=== PATIENT | female | born 1970 | race Two or more races ===

== ENCOUNTER 2025-08-16 12:50 | Outpatient (CLI) | payer OTHER, SELFPAY ==
--- OUTSIDE RECORDS SUMMARY | 2024-11-11 03:30 | XMS_ITS ---
Author Organization [facility] Address [address] [facility] [address] [place] [address] Care Team Providers Care Dye Boarding Machine Operator Name Role Phone Castillo Barrett Primary Care Provider Encounters Encounter Location Date Provider Diagnosis [facility] [address] [facility] [address] [place] [address] 11/11/2024 Castillo Barrett Plan Of Treatment Next Appt Details Provider Name:Castillo wells, 08/17/2025 01:00:00 PM, [address] [facility], [facility] [address], [place], [address], Progress Notes * EDDY, PATRICIA IDOB: 9 (55 yo F)Acc No.[id number]:11/11/2024 Progress Notes Patient: PATRICIA LANCASTER I Provider: Rosita Barrett M.D. :1970 A ge:54 Y S ex:Female Date:11/11/2024 Address[facility] [address] [facility] [id number] Subjective: * Chief Complaints: * * Medical History: Objective: * Vitals: Assessment: Plan: * Treatment: * * Electronic signature of Dominique Barrett MD on 08/16/2025 at 02:56 PM EST Sign off status: Pending * Provider: Rosita Barrett M.D. Date: 0 11/11/2024 Generated for Anibal grove/Dane/Miguel on: 1 10/16/2024 02:56 PM EST
--- OUTSIDE RECORDS SUMMARY | 2024-11-11 04:54 | XMS_ITS ---
Author Organization [facility] Address [address] [facility] [address] [place] [address] Care Team Providers Care Signal Inspector Name Role Phone Castillo Barrett Primary Care Provider Encounters Encounter Location Date Provider Diagnosis [facility] [address] [facility] [address] [place] [address] 11/11/2024 Castillo Barrett Plan Of Treatment Next Appt Details Provider Name:Castillo wells, 08/17/2025 01:00:00 PM, [address] [facility], [facility] [address], [place], [address], Progress Notes * EDDY, PATRICIA IDOB: [birth year] (55 yo F)Acc No.[id number]:11/11/2024 Progress Notes Patient: PATRICIA LANCASTER I Provider: Rosita Barrett M.D. :1970 A ge:54 Y S ex:Female Date:11/11/2024 Address[id number] Subjective: * Chief Complaints: * * Medical History: Objective: * Vitals: Assessment: Plan: * Treatment: * * Electronic signature of Dominique Barrett MD on 08/16/2025 at 02:57 PM EST Sign off status: Pending * Provider: Rosita Barrett M.D. Date: 0 11/11/2024 Generated for Anibal grove/Dane/Miguel on: 1 10/16/2024 02:57 PM EST
--- OUTSIDE RECORDS SUMMARY | 2024-11-17 03:30 | XMS_ITS ---
Author Organization [facility] Address [address] [facility] 2 [place] [address] Care Team Providers Care Servomechanism Assembler Name Role Phone Castillo Barrett Primary Care Provider [phone] Allergies No Known Allergies REASON FOR VISIT F/U HTN Medications Medication SIG (Take, Route, Frequency, Duration) Notes Start Date End Date Status Losartan Potassium 25 MG Take 1 tablet b y mouth once daily; Duration: 30 Active Phentermine HCl 37.5 MG 1 capsule Orally Once a day; Duration: 30 days 10/11/2024 Active Vitamin D (Ergocalciferol) 1.25 MG (27612 UT) Take 1 capsule by mouth once a week; Duration: 84 Active Aleve 220 MG 1 tablet with food o r milk as needed Orally every 12 hrs Active Multi For Her - 1 tab Orally Every day Not-Taking SENNA-S 8.6-50 MG 2TAB PO bid prn Not-Taking Doxycycline Hyclate 100 MG 1 capsule Ora lly Twice a day; Duration: 7 days 08/18/2018 Not-Taking Tessalon Perles 100 MG 1 capsule as need ed Orally Three times a day; Duration: 7 days 08/18/2018 Not-Taking Multivitamins 1TAB 1 tablet PO 1 per week 10/05/18 Not-Taking Social History Tobacco Use: Social History Observation Description Date Details (start date - stop date) Never Smoker NA - NA Tobacco Use/Smoking Question Answer Notes Are you a nonsmoker Additional Findings: Tobacco Non-User Current no n-smoker Tobacco use other than smoking: Question Answer Notes Are you an other tobacco user? No Vital Signs Temperature 98.2 degrees Fahrenheit 11/17/19 25 Blood pressure systolic 122 mm Hg 11/17/19 25 Blood pressure diastolic 84 mm Hg 025 Heart Rate 93 /min 11/17/2024 Respiratory Rate 16 /min 11/17/2024 Height 65 in 11/17/2024 Weight 204 lbs 11/17/2024 BMI 33.94 kg/m2 11/17/2024 Oximetry 98 % 11/17/2024 ple Encounters Encounter Location Date Provider Diagnosis [facility] [address] [facility] [address] [place] [address] 11/17/2024 Castillo Barrett Hypertension I10 ; H LD (hyperlipidemia) E78.5 ; Morbid obesity E66.01 and Bilateral primary osteoarthritis of knee M17.0 Assessments Encounter Date Diagnosis (ICD Code) Assessment Notes Treatment Notes Treatment Clinical Notes Section Notes 11/17/2024 Hypertension (ICD-10 - I10) High Blood Pressure: Care Instructions material was published 11/17/2024 HLD (hyperlipidemia) (ICD-10 - E78.5) 11/17/2024 Morbid obesity (ICD-10 - E66.01) 11/17/2024 Bilateral primary osteoarthritis of knee (ICD-10 - M17.0) Plan Of Treatment Treatment Notes Assessment Notes Hypertension High Blood Pressure: Care Instructions material was published Next Appt Details Provider Name:Castillo wells, 08/17/2025 01:00:00 PM, [address] [facility], [address], [place], [address], Progress Notes * PATRICIA EDDY IDOB: [birth year] (55 yo F)Acc No.[id number]:11/17/2024 Progress Notes Patient: CORRIE LANCASTERTI Chelsey Provider: Rosita Barrett M.D. :1970 A ge:54 Y S ex:Female Date:11/17/2024 Address:[address] [place] [address] [place] [address] Subjective: * Chief Complaints: * 1 . F/U HTN. * ROS: C onstitutional: No C onstit. Complaints . D enies A ppetites change . D enies E xcessive sweating . D enies F atigue . D enies F ever. D enies N ight sweats . D enies W eight gain. D enies W eight loss. E yes: No E ye complaints . D enies B lurred vision. D enies C orrective lenses. D enies D iplopia. D enies E ye irritation . D enies E ye pain . D enies S pots in vision . D enies V ision loss. ? E ars, nose, mouth, throat: No E NT complaints . D enies E ar pain . D enies H earing loss . D enies T innitus. D enies V ertigo. D enies F acial pain . D enies N miguel discharge. D enies N miguel obstruction . D enies N osebleeds. D enies P ostnasal drainage . D enies B leeding gums. D enies D ental pain . D enies M outh Lesions . D enies H oarseness. D enies S ore throat .? C ardiovascular: No C ardiovas. Complaints. D enies C hest pain .?Denies D ecr. exercise tolerance . D enies E xertional dyspnea . D enies O rthropnea. D enies P alpitations. D enies S yncope. D enies C laudication . Denies L eg ulcers . D enies P eripheral edema. R espiratory: No R espiratory Complaints . D enies C ough . D enies S putum production . D enies H emoptysis . D enies S hortness of Breath .?Denies P leuritic pain . D enies W heezing . D enies S noring . D enies A pneas. G astrointestinal: No G I Complaints . D enies A bdominal pain . D enies B loating . D enies F ood intolerance . D enies N ausea. D enies V omiting . D enies D ysphagia . D enies R eflux/heartburn . D enies C hange in bowel habits . D enies C onstipation . D enies D iarrhea . D enies B lack stools . D enies B loody stools. G enitourinary: No G U Complaints . D enies C hange in urinary stream . D enies D ysuria . D enies H ematuria . D enies I ncontinence . D enies N octuria . D enies U rinary frequency . D enies U rinary urgency . D enies D ysmenorrhea. D enies D yspareunia. D enies S exual dysfunction . D enies V aginal discharge . M usculoskeletal: Denies M usculo. Complaints . D enies B ack pain .?Admits J oint pain , K nee pain, Neck pain. . A dmits J oint swelling ,?Leg swelling. D enies L imited range of motion . D enies M uscle aches. D enies M uscle weakness . D enies S tiffness . N eurologic: No N eurologic Complaints . D enies A bnormal gait . D enies F ocal weakness . D enies H eadache . D enies I ncoordination .?Denies M eugenie problems . D enies N umbness . D enies S eizures . D enies?Slurred Speech. P sychiatric: No P sychiatric Complaints . D enies A nxiety .?Denies D ecreased concentration . D enies I rritability . D enies P anic attacks . D enies S leep disturbance . D enies S adness/tearfulness. H ematologic/lymphatic: No H em/Lymph Complaints . D enies B ruising . D enies B leeding tendencies . D enies L ymphadenopathy . D enies R ecurrent infections . A llergic/immunologic: No A ll/Imm Complaints . D enies E czema. D enies S easonal allergies . D enies U rticaria . E ndocrine: No E ndocrine Complaints . D enies P olydipsia .?Denies P olyphagia . D enies P olyuria . * Medical History: A nemia, Constipation, ,Note-righjt ovary, Varicose veins of lower extremity. * Surgical History: C -Section Childbirth ; , Hysterectomy [id number] ; , lasik ; . * Family History: F ather: diagnosed with Diabetes mellitus without mention of complication, type II or unspecified type, not stated as uncontrolled, Unspecified essential hypertension, Unspecified heart disease. Paternal uncle: diagnosed with Diabetes mellitus without mention of complication, type II or unspecified type, not stated as uncontrolled. 2 brother(s) . 1 son(s) - healthy. . * Social History: T obacco Use: T obacco Use/Smoking A re you a n onsmoker, A dditional Findings: Tobacco Non-User C urrent non-smoker. T obacco use other than smoking A re you an other tobacco user? N o. M igSocialHx: M igSocialHx: Alcohol Use (ANS-No) ;Drug Use (ANS-No) ;Exposed to Second Hand Smoke (ANS-No) ;History of IV Drug Use (ANS-No) ;Lives In (ANS-Home) ;Lives With (ANS-Spouse) ;Smoking status (ANS-Never smoker) ;. D rugs/Alcohol: D rugs H ave you used drugs other than those for medical reasons in the past 12 months??No. C affeine I ntake: 1 -2 cups per day. D o you smoke marijuana?: Denies. Do you drink alcohol?: No. * Medications: T aking Aleve 220 MG Tablet 1 tablet with food or milk as needed Orally every 12 hrs , Taking Vitamin D (Ergocalciferol) 1.25 MG (83944 UT) Capsule Take 1 capsule by mouth once a week , Taking Phentermine HCl 37.5 MG Capsule 1 capsule Orally Once a day , Taking Losartan Potassium 25 MG Tablet Take 1 tablet by mouth once daily , Not-Taking/PRN Multi For Her - Tablet 1 tab Orally Every day , Not-Taking/PRN Multivitamins 1TAB TAB 1 tablet PO 1 per week , Not-Taking/PRN Tessalon Perles 100 MG Capsule 1 capsule as needed Orally Three times a day , Not-Taking/PRN Doxycycline Hyclate 100 MG Capsule 1 capsule Orally Twice a day , Not-Taking/PRN SENNA-S 8.6-50 MG 2TAB TAB PO bid prn , Medication List reviewed and reconciled with the patient * Allergies: N .K.D.A. Objective: * Vitals: T emp:98.2F, HR:93/min, BP:122/84mm Hg, Wt:204lbs, BMI:33.94Index, Ht: 65 in, RR:16/min, Oxygen sat %:98%, Peak Flow: RA, Wt-k.53 kg. ple. * Examination: G eneral Examination: FUNCTIONAL STATUS A mbulatory . COGNITIVE STATUS A lert and oriented. GENERAL APPEARANCE: i n no acute distress, well developed, well nourished. NUTRITIONAL STATUS N ormal . ASSISTED DEVICES N one. HEAD: n ormocephalic, atraumatic. EYES: p upils equal, reactive to light and accommodation.? EARS: n ormal. ORAL CAVITY: m ucosa moist. THROAT: c lear. NECK/THYROID: n vladimir supple, full range of motion, no cervical lymphadenopathy. SKIN: w arm and dry. HEART: r egular rate and rhythm, S1, S2 normal. LUNGS: c lear to auscultation bilaterally. ABDOMEN: n ormal, bowel sounds present, soft, nontender, nondistended. EXTREMITIES: n o clubbing, cyanosis, or edema. NEUROLOGIC: n onfocal, cranial nerves 2-12 grossly intact, motor strength normal upper and lower extremities, sensory exam intact. PSYCH: a lert, oriented x 3. Assessment: * Assessment: 1. H ypertension - I10 (Primary) 2 . H LD (hyperlipidemia) - E78.5 ? 3 . M orbid obesity - E66.01 4 . B ilateral primary osteoarthritis of knee - M17.0 Plan: * Treatment: * Preventive Medicine: Counseling: C are goal follow-up plan: B MA management provided Y es, Sara muller Normal BMI Follow-up G iving encouragement to exercise, Lifestyle education regarding diet. * * Electronic signature of Dominique Barrett MD on 08/16/2025 at 02:56 PM EST Sign off status: Pending * Provider: Rosita Barrett M.D. Date: 0 11/17/2024 Generated for [place]ibal [place]ve/Dane/eTransmitting on: 1 10/16/2024 02:56 PM EST History and Physical Notes * Examination Category Sub-Category Detail Notes Category Not es General Examination GENERAL APPEARANCE: in no ac [place] distress, well developed, well nourished HEAD: normocephalic, atrau matic EYES: pupils equal, reacti ve to light and accommodation EARS: normal THROAT: clear NECK/THYROID: neck supple, full ra nge of motion, no cervical lymphadenopathy HEART: regular rate and rhy thm, S1, S2 normal LUNGS: clear to auscultatio n bilaterally ABDOMEN: normal, bowel sounds present, soft, nontender, nondistended NEUROLOGIC: nonfocal, cranial ne rves 2-12 grossly intact, motor strength normal upper and lower extremities, sensory exam intact SKIN: warm and dry EXTREMITIES: no clubbing, cyanosi s, or edema PSYCH: alert, oriented x 3 ORAL CAVITY: mucosa moist FUNCTIONAL STATUS Ambulatory COGNITIVE STATUS Alert and oriented NUTRITIONAL STATUS Normal ASSISTED DEVICES None
--- OUTSIDE RECORDS SUMMARY | 2024-12-15 09:00 | XMS_ITS ---
Author Organization [facility] Address [address] [facility] [address] [place] [address] Care Team Providers Care Edge Dyer Name Role Phone Castillo Barrett Primary Care Provider Allergies No Known Allergies REASON FOR VISIT F/U HTN Medications Medication SIG (Take, Route, Frequency, Duration) Notes Start Date End Date Status Aleve 220 MG 1 tablet with food o r milk as needed Orally every 12 hrs Active Multivitamins 1TAB 1 tablet PO 1 per week 10/05/18 Not-Taking Tessalon Perles 100 MG 1 capsule as need ed Orally Three times a day; Duration: 7 days 08/18/2018 Not-Taking Doxycycline Hyclate 100 MG 1 capsule Ora lly Twice a day; Duration: 7 days 08/18/2018 Not-Taking SENNA-S 8.6-50 MG 2TAB PO bid prn Not-Taking Phentermine HCl 37.5 MG 1 capsule Orally Every other day; Duration: 30 days 11/17/2024 Active Vitamin D (Ergocalciferol) 1.25 MG (20844 UT) Take 1 capsule by mouth once a week; Duration: 84 Active Losartan Potassium 25 MG Take 1 tablet b y mouth once daily; Duration: 30 Active Multi For Her - 1 tab Orally Every day Not-Taking Social History Tobacco Use: Social History Observation Description Date Details (start date - stop date) Never Smoker NA - NA Tobacco Use/Smoking Question Answer Notes Are you a nonsmoker Additional Findings: Tobacco Non-User Current no n-smoker Tobacco use other than smoking: Question Answer Notes Are you an other tobacco user? No Vital Signs Temperature 97.6 degrees Fahrenheit 12/16/19 25 Blood pressure systolic 124 mm Hg 12/16/19 25 Blood pressure diastolic 86 mm Hg 025 Heart Rate 92 /min 12/15/2024 Respiratory Rate 16 /min 12/15/2024 Height 65 in 12/15/2024 Weight 200 lbs 12/15/2024 BMI 33.28 kg/m2 12/15/2024 Oximetry 99 % 12/15/2024 ple Encounters Encounter Location Date Provider Diagnosis [facility] [address] [facility] [address] [place] [address] 12/15/2024 Castillo Barrett Hypertension I10 ; HLD (hyperlipidemia) E78.5 ; Vitamin D deficiency E55.9 ; Non-seasonal allergic rhinitis, unspecified trigger J30.89 and Morbid obesity E66.01 Assessments Encounter Date Diagnosis (ICD Code) Assessment Notes Treatment Notes Treatment Clinical Notes Section Notes 12/15/2024 Hypertension (ICD-10 - I10) High Blood Pressure: Care Instructions material was published 12/15/2024 HLD (hyperlipidemia) (ICD-10 - E78.5) 12/15/2024 Vitamin D deficiency (ICD-10 - E55.9) 12/15/2024 Non-seasonal allergic rhinitis, unspecified trigger (ICD-10 - J30.89) 12/15/2024 Morbid obesity (ICD-10 - E66.01) Plan Of Treatment Treatment Notes Assessment Notes Hypertension High Blood Pressure: Care Instructions material was published Next Appt Details Provider Name:Castillo wells, 08/17/2025 01:00:00 PM, [address] [facility], [address], [place], [address], Progress Notes * PATRICIA EDDY IDOB: [birth year] (55 yo F)Acc No.[id number]:12/15/2024 Progress Notes Patient: PATRICIA LANCASTER I Provider: Rosita Barrett M.D. :1970 A ge:54 Y S ex:Female Date:12/15/2024 Address:[address] [address] , [place] [id number] Subjective: * Chief Complaints: * 1 . F/U HTN. * ROS: C onstitutional: No C onstit. Complaints . D enies A ppetites change . D enies E xcessive sweating . D enies F atigue . D enies F ever. D enies N ight sweats . D enies W eight gain. D enies W eight loss. E yes: No E ye complaints . A dmits B lurred vision. D enies C orrective [...] ack pain .?Admits J oint pain , N vladimir pain, Lt & Rt Knee pain,Shoulder pain. . A dmits J oint swelling , L eg swelling . D enies L imited range of motion . D enies M uscle aches. D enies M uscle weakness . D enies S tiffness . ? N eurologic: No N eurologic Complaints . [...] History: C -Section Childbirth ; , Hysterectomy ; , lasik ; . * Family [...] Use/Smoking A re you a n onsmoker, Sara dditional Findings: Tobacco Non-User C urrent non-smoker. [...] needed Orally every 12 hrs , Taking Phentermine HCl 37.5 MG Capsule 1 capsule Orally Every other day , Taking Vitamin D (Ergocalciferol) 1.25 MG (07771 UT) Capsule Take 1 capsule by mouth once a week , Taking Losartan Potassium 25 MG Tablet [...] 8.6-50 MG 2TAB TAB PO bid prn * Allergies: N .K.D.A. Objective: * Vitals: T emp:97.6F, HR:92/min, BP:124/86mm Hg, Wt:200lbs, BMI:33.28Index, Ht: 65 in, RR:16/min, Oxygen sat %:99%, Peak Flow: RA, Wt-k.72 kg. ple. * Examination: G eneral Examination: [...] LD (hyperlipidemia) - E78.5 ? 3 . V itamin D deficiency - E55.9 4 . N on-seasonal allergic rhinitis, unspecified trigger - J30.89 5 . M orbid obesity - E66.01 Plan: * Treatment: * Preventive Medicine: Counseling: C are goal follow-up plan: B AL management provided Sara Melissa Normal BMI Follow-up G iving encouragement to exercise, Lifestyle education regarding diet. * * Electronic signature of Dominique Barrett MD on 08/16/2025 at 02:57 PM EST Sign off status: Pending * Provider: Rosita Barrett M.D. Date: 0 12/15/2024 Generated for Printi ng/Faxing/eTransmitting on: 1 10/16/2024 02:57 PM EST History and Physical Notes * Examination Category Sub-Category Detail Notes Category Not es General Examination GENERAL APPEARANCE: in no ac stephanie distress, well developed, well nourished HEAD: normocephalic, [...]
--- OUTSIDE RECORDS SUMMARY | 2025-01-12 09:30 | XMS_ITS ---
Author Organization [facility] Address [address] [facility] [address] [place] [address] Care Team Providers Care Final Rail Cutter Name Role Phone Castillo Barrett Primary Care Provider [phone] Encounters Encounter Location Date Provider Diagnosis [facility] [address] [facility] [address] [place] [address] 01/12/2025 Castillo Barrett Plan Of Treatment Next Appt Details Provider Name:Castillo wells, 08/17/2025 01:00:00 PM, [address] [facility], [facility] [address], [place], [address], Progress Notes * EDDY, PATRICIA IDOB: [birth year] (55 yo F)Acc No.[id number]:01/12/2025 Progress Notes Patient: PATRICIA LANCASTER I Provider: Rosita Barrett M.D. :1970 A ge:54 Y S ex:Female Date:01/12/2025 [id number] Subjective: * Chief Complaints: * * Medical History: Objective: * Vitals: Assessment: Plan: * Treatment: * * Electronic signature of Dominique Barrett MD on 08/16/2025 at 02:56 PM EST Sign off status: Pending * Provider: Rosita Barrett M.D. Date: 0 01/12/2025 Generated for [place]ve/Dane/Miguel on: 1 10/16/2024 02:56 PM EST
--- OUTSIDE RECORDS SUMMARY | 2025-02-02 09:45 | XMS_ITS ---
Author Organization [facility] Address [address] [facility] [address] [place] [address] Care Team Providers Care Patents Examiner Name Role Phone Castillo Barrett Primary Care Provider Encounters Encounter Location Date Provider Diagnosis [facility] [address] [facility] [address] [place] [address] 02/02/2025 Castillo Barrett Plan Of Treatment Next Appt Details Provider Name:Castillo wells, 08/17/2025 01:00:00 PM, [address] [facility], [facility] [address], [place], [address], Progress Notes * EDDY, PATRICIA IDOB: [birth year] (55 yo F)Acc No.[id number]:02/02/2025 Progress Notes Patient: PATRICIA LANCASTER I Provider: Rosita Barrett M.D. :1970 A ge:54 Y S ex:Female Date:02/02/2025 [facility] Subjective: * Chief Complaints: * * Medical History: Objective: * Vitals: Assessment: Plan: * Treatment: * * Electronic signature of Dominique Barrett MD on 08/16/2025 at 02:56 PM EST Sign off status: Pending * Provider: Rosita Barrett M.D. Date: 02/02/2025 Generated for [place]/Dane/Miguel on: 1 10/16/2024 02:56 PM EST
--- OUTSIDE RECORDS SUMMARY | 2025-04-05 03:00 | XMS_ITS ---
[facility] Organization [facility] Address [address] [facility] [address] [place] [address] Care Team Providers Care Labor Relations Officer Name Role Phone Castillo Barrett Primary Care Provider Allergies No Known Allergies REASON FOR VISIT F/U HTN Medications Medication SIG (Take, Route, Frequency, Duration) Notes Start Date End Date Status Multi For Her - 1 tab Orally Every day Not-Taking Tessalon Perles 100 MG 1 capsule as need ed Orally Three times a day; Duration: 7 days 08/18/2018 Not-Taking Multivitamins 1TAB 1 tablet PO 1 per week 10/05/18 00 Not-Taking Doxycycline Hyclate 100 MG 1 capsule Ora lly Twice a day; Duration: 7 days 08/18/2018 Not-Taking SENNA-S 8.6-50 MG 2TAB PO bid prn Not-Taking Vitamin D (Ergocalciferol) 1.25 MG (17142 UT) Take 1 capsule by mouth once a week; Duration: 84 Active Aleve 220 MG 1 tablet with food o r milk as needed Orally every 12 hrs Active Losartan Potassium 25 MG Take 1 tablet b y mouth once daily; Duration: 30 Active Phentermine HCl 37.5 MG 1 capsule Orally Every other day; Duration: 30 days 12/16/2024 Not-Taking Social History Tobacco Use: Social History Observation Description Date Details (start date - stop date) Never Smoker NA - NA Tobacco Use/Smoking Question Answer Notes Are you a nonsmoker Additional Findings: Tobacco Non-User Current no n-smoker Tobacco use other than smoking: Question Answer Notes Are you an other tobacco user? No Vital Signs Temperature 98.1 degrees Fahrenheit 04/05/20 25 Blood pressure systolic 122 mm Hg 04/05/20 25 Blood pressure diastolic 76 mm Hg 025 Heart Rate 81 /min 04/05/2025 Respiratory Rate 16 /min 04/05/2025 Height 65 in 04/05/2025 Weight 199 lbs 04/05/2025 BMI 33.11 kg/m2 04/05/2025 Oximetry 99 % 04/05/2025 ple Encounters Encounter Location Date Provider Diagnosis [facility] [address] [facility] [address] [place] [address] 04/05/2025 Castillo Barrett Hypertension I10 ; HLD (hyperlipidemia) E78.5 ; Vitamin D deficiency E55.9 ; Non-seasonal allergic rhinitis, unspecified trigger J30.89 ; Vertigo R42 and Morbid obesity E66.01 Assessments Encounter Date Diagnosis (ICD Code) Assessment Notes Treatment Notes Treatment Clinical Notes Section Notes 04/05/2025 Hypertension (ICD-10 - I10) High Blood Pressure: Care Instructions material was published 04/05/2025 HLD (hyperlipidemia) (ICD-10 - E78.5) 04/05/2025 Vitamin D deficiency (ICD-10 - E55.9) 04/05/2025 Non-seasonal allergic rhinitis, unspecified trigger (ICD-10 - J30.89) 04/05/2025 Vertigo (ICD-10 - R42) 04/05/2025 Morbid obesity (ICD-10 - E66.01) Plan Of Treatment Treatment Notes Assessment Notes Hypertension High Blood Pressure: Care Instructions material was published Next Appt Details Provider Name:Castillo wells, 08/17/2025 01:00:00 PM, [address] [facility], [address], [place], [address], Progress Notes * PATRICIA EDDY IDOB: 9 (55 yo F)Acc No.[id number]:04/05/2025 Progress Notes Patient: PATRICIA LANCASTER I Provider: Rosita Barrett M.D. :1970 A ge:54 Y S ex:Female Date:04/05/2025 Address:[address] [place] [address] , [place] [address] Subjective: * Chief Complaints: * 1 . [...] M usculoskeletal: Denies M usculo. Complaints . A dmits B ack pain .?Admits J oint pain , K nee pain, Neck pain. . A dmits J oint swelling ,?Leg swelling . D enies L imited range of motion . D enies M uscle aches. Denies M uscle weakness . D enies S [...] History: C -Section Childbirth ; , Hysterectomy [id number] ; , lasik ; . * Family [...] With (ANS-Spouse) ;Smoking status (ANS-Never smoker) ;. * Medications: T aking Aleve 220 MG Tablet 1 tablet with food or milk as needed Orally every 12 hrs , Taking Losartan Potassium 25 MG Tablet Take 1 tablet by mouth once daily , Taking Vitamin D (Ergocalciferol) 1.25 MG (47321 UT) Capsule Take 1 capsule by mouth once a week , Not-Taking/PRN Phentermine HCl 37.5 MG Capsule 1 capsule Orally Every other day , Not-Taking/PRN Multi For Her - Tablet 1 tab Orally Every day , Not- Taking/PRN Multivitamins 1TAB TAB 1 tablet PO 1 [...] Allergies: N .K.D.A. Objective: * Vitals: T emp:98.1F, HR:81/min, BP:122/76mm Hg, Wt:199lbs, BMI:33.11Index, Ht: 65 in, RR:16/min, Oxygen sat %:99%, Peak Flow:RA, Wt-k.27 kg. ple. * Examination: G eneral Examination: [...] rhinitis, unspecified trigger - J30.89 5 . V ertigo - R42 6 . M orbid obesity - E66.01 Plan: * Treatment: * Preventive Medicine: Counseling: C are goal follow-up plan: B HI management provided Y Perry locke Normal BMI Follow-up G iving encouragement to exercise, Lifestyle education regarding diet. * * Electronic signature of Dominique Barrett MD on 08/16/2025 at 02:57 PM EST Sign off status: Pending * Provider: Rosita Barrett M.D. Date: 0 04/05/2025 Generated for Anibal grove/Dane/Lazarosmitting on: 10/16/2024 02:57 PM EST History and Physical [...]
--- OUTSIDE RECORDS SUMMARY | 2025-05-11 03:15 | XMS_ITS ---
Author Organization [facility] Address [address] [facility] [address] [place] [address] Care Team Providers Care Modular Set Crew Member Name Role Phone Castillo Barrett Primary Care Provider Encounters Encounter Location Date Provider Diagnosis [facility] [address] [facility] [address] [place] [address] 05/11/2025 Castillo Barrett Plan Of Treatment Next Appt Details Provider Name:Castillo wells, 08/17/2025 01:00:00 PM, [address] [facility] [facility] [address], [place], [address], Progress Notes * EDDY, PATRICIA IDOB: 9 (55 yo F)Acc No.[id number]:05/11/2025 Progress Notes Patient: PATRICIA LANCASTER I Provider: Rosita Barrett M.D. :1970 A ge:54 Y S ex:Female Date:05/11/2025 [facility] Subjective: * Chief Complaints: * * Medical History: Objective: * Vitals: Assessment: Plan: * Treatment: * * Electronic signature of Dominique Barrett MD on 08/16/2025 at 02:56 PM EST Sign off status: Pending * Provider: Rosita Barrett M.D. Date: 0 05/11/2025 Generated for Anibal grove/Dane/Miguel on: 1 10/16/2024 02:56 PM EST
--- OUTSIDE RECORDS SUMMARY | 2025-05-18 08:00 | XMS_ITS ---
Author Organization [facility] Address [address] [facility] [address] [place] [address] Care Team Providers Care Carpenter Ship Name Role Phone Castillo Barrett Primary Care Provider Allergies No Known Allergies REASON FOR VISIT F/U HTN Medications Medication SIG (Take, Route, Frequency, Duration) Notes Start Date End Date Status SENNA-S 8.6-50 MG 2TAB PO bid prn Not-Taking Tessalon Perles 100 MG 1 capsule as need ed Orally Three times a day; Duration: 7 days 08/18/2018 Not-Taking Doxycycline Hyclate 100 MG 1 capsule Ora lly Twice a day; Duration: 7 days 08/18/2018 Not-Taking Multi For Her - 1 tab Orally Every day Not-Taking Multivitamins 1TAB 1 tablet PO 1 per week 10/05/18 Not-Taking Vitamin D (Ergocalciferol) 1.25 MG (36480 UT) Take 1 capsule by mouth once a week; Duration: 84 Active Phentermine HCl 37.5 MG 1 capsule Orally Every other day; Duration: 30 days 04/05/2025 Not-Taking Aleve 220 MG 1 tablet with food o r milk as needed Orally every 12 hrs Active Losartan Potassium 25 MG Take 1 tablet b y mouth once daily; Duration: 30 Active Social History Tobacco Use: Social History Observation Description Date Details (start date - stop date) Never Smoker NA - NA Tobacco Use/Smoking Question Answer Notes Are you a nonsmoker Additional Findings: Tobacco Non-User Current no n-smoker Tobacco use other than smoking: Question Answer Notes Are you an other tobacco user? No Problems Problem Type SNOMED Code ICD Code Onset Dates Problem Status W/U Status Risk Notes Problem Adverse effect due to correct medicinal substance, properly administered (T50.905A) Active confirmed Vital Signs Temperature 98.0 degrees Fahrenheit 05/18/20 25 Blood pressure systolic 124 mm Hg 05/18/20 25 Blood pressure diastolic 82 mm Hg 025 Heart Rate 77 /min 05/18/2025 Respiratory Rate 16 /min 05/18/2025 Height 65 in 05/18/2025 Weight 195 lbs 05/18/2025 BMI 32.45 kg/m2 05/18/2025 Oximetry 98 % 05/18/2025 ple Encounters Encounter Location Date Provider Diagnosis [facility] [address] [facility] [address] [place] [address] 05/18/2025 Castillo Barrett Hypertension I10 ; HLD (hyperlipidemia) E78.5 ; Vitamin D deficiency E55.9 ; Morbid obesity E66.01 ; Vertigo R42 and Adverse effect due to correct medicinal substance, properly administered T50.905A Assessments Encounter Date Diagnosis (ICD Code) Assessment Notes Treatment Notes Treatment Clinical Notes Section Notes 05/18/2025 Hypertension (ICD-10 - I10) High Blood Pressure: Care Instructions material was published 05/18/2025 HLD (hyperlipidemia) (ICD-10 - E78.5) 05/18/2025 Vitamin D deficiency (ICD-10 - E55.9) 05/18/2025 Morbid obesity (ICD-10 - E66.01) 05/18/2025 Vertigo (ICD-10 - R42) 05/18/2025 Adverse effect due to correct medicinal substance, properly administered (ICD-10 - T50.905A) Plan Of Treatment Treatment Notes Assessment Notes Hypertension High Blood Pressure: Care Instructions material was published Next Appt Details Provider Name:Castillo wells, 08/17/2025 01:00:00 PM, [address] [facility], [address], [place], [address], Progress Notes * PATRICIA EDDY IDOB: [birth year] (55 yo F)Acc No.[id number]:05/18/2025 Progress Notes Patient: PATRICIA LANCASTER I Provider: Rosita Barrett M.D. :1970 A ge:54 Y S ex:Female Date:05/18/2025 Address:[address] [place] [address] [place] [id number] Subjective: * Chief Complaints: * 1 . F/U HTN. * Medical History: A nemia, Constipation, ,Note-righjt ovary, Varicose veins of lower extremity. * Surgical History: C -Section Childbirth ; , Hysterectomy [id number] ; , lasik ; . * Family [...] , Taking Vitamin D (Ergocalciferol) 1.25 MG (64744 UT) Capsule Take 1 capsule by mouth once a week , Taking Losartan Potassium 25 MG Tablet Take 1 tablet by mouth once daily , Not-Taking/PRN Phentermine HCl 37.5 MG Capsule [...] Allergies: N .K.D.A. Objective: * Vitals: T emp:98.0F, HR:77/min, BP:124/82mm Hg, Wt:195lbs, BMI:32.45Index, Ht: 65 in, RR:16/min, Oxygen sat %:98%, Peak Flow:RA, Wt-k.45 kg. ple. Assessment: * Assessment: 1. H ypertension - I10 (Primary) 2 . H LD (hyperlipidemia) - E78.5 ? 3 . V itamin D deficiency - E55.9 4 . M orbid obesity - E66.01 ? 5 . V ertigo - R42 6 . A dverse effect due to correct medicinal substance, properly administered - T50.905A Plan: * Treatment: * Preventive Medicine: Your Preventative Wellness Plan: B reast Cancer Screening M ammogram should be performed every 24 months. STATUS: O rdered. C olorectal Cancer Screening C olonoscopy is recommended once every 10 years for patients at low risk or 2 years if at high risk. STATUS: P atient refused Patient wants Cologuard. * * Electronic signature of Dominique Barrett MD on 08/16/2025 at 02:57 PM EST Sign off status: Pending * Provider: Rosita Barrett M.D. Date: 0 05/18/2025 Generated for Anibal grove/Dane/Miguel on: 10/16/2024 02:57 PM EST
--- OUTSIDE RECORDS SUMMARY | 2025-07-26 03:00 | XMS_ITS ---
Author Organization [facility] Address [address] [facility] [address] [place] [address] Care Team Providers Care Clinical Unit Educator Name Role Phone Castillo Barrett Primary Care Provider [phone] Allergies No Known Allergies REASON FOR VISIT F/U HTN Medications Medication SIG (Take, Route, Frequency, Duration) Notes Start Date End Date Status Tessalon Perles 100 MG 1 capsule as need ed Orally Three times a day; Duration: 7 days 08/18/2018 Not-Taking SENNA-S 8.6-50 MG 2TAB PO bid prn Not-Taking Doxycycline Hyclate 100 MG 1 capsule Ora lly Twice a day; Duration: 7 days 08/18/2018 Not-Taking Multivitamins 1TAB 1 tablet PO 1 per week 10/05/18 Not-Taking Multi For Her - 1 tab Orally Every day Not-Taking Phentermine HCl 37.5 MG 1 capsule Orally Every other day; Duration: 30 days 04/05/2025 Not-Taking Losartan Potassium 25 MG Take 1 tablet b y mouth once daily; Duration: 30 Active Vitamin D (Ergocalciferol) 1.25 MG (51302 UT) Take 1 capsule by mouth once a week; Duration: 84 Active Aleve 220 MG 1 tablet with food o r milk as needed Orally every 12 hrs Active Immunizations Vaccine Route Administration Date Status Comme nts Flucelvax IM Intramuscular 07/26/2025 Administered Vital Signs Temperature 97.5 degrees Fahrenheit 07/26/20 25 Blood pressure systolic 132 mm Hg 07/26/20 25 Blood pressure diastolic 82 mm Hg 025 Heart Rate 76 /min 07/26/2025 Respiratory Rate 16 /min 07/26/2025 Height 65 in 07/26/2025 Weight 201 lbs 07/26/2025 BMI 33.44 kg/m2 07/26/2025 Oximetry 98 % 07/26/2025 TM Encounters Encounter Location Date Provider Diagnosis [facility] [address] [facility] [address] [place] [address] 07/26/2025 Castillo Barrett Hypertension I10 ; HLD (hyperlipidemia) E78.5 ; Vitamin D deficiency E55.9 ; Non-seasonal allergic rhinitis, unspecified trigger J30.89 ; Vertigo R42 and Other obesity due to excess calories E66.09 Assessments Encounter Date Diagnosis (ICD Code) Assessment Notes Treatment Notes Treatment Clinical Notes Section Notes 07/26/2025 Hypertension (ICD-10 - I10) High Blood Pressure: Care Instructions material was published 07/26/2025 HLD (hyperlipidemia) (ICD-10 - E78.5) 07/26/2025 Vitamin D deficiency (ICD-10 - E55.9) 07/26/2025 Non-seasonal allergic rhinitis, unspecified trigger (ICD-10 - J30.89) 07/26/2025 Vertigo (ICD-10 - R42) 07/26/2025 Other obesity due to excess calories (ICD-10 - E66.09) Plan Of Treatment Treatment Notes Assessment Notes Hypertension High Blood Pressure: Care Instructions material was published Next Appt Details Provider Name:Castillo wells, 08/17/2025 01:00:00 PM, [address] [facility], [address], [place], [address], Progress Notes * PATRICIA YADAV IDOB: [birth year] (55 yo F)Acc No.[id number]:07/26/2025 Progress Notes Patient: PATRICIA LANCASTER I Provider: Rosita Barrett M.D. :1970 A ge:55 Y S ex:Female Date:07/26/2025 Address:[address] [place] [address] , [place], [place] Subjective: * Chief Complaints: * 1 . F/U HTN. * Medical History: A nemia, Constipation, ,Note-righjt ovary, Varicose veins of lower extremity. * Surgical History: C -Section Childbirth ; , Hysterectomy [id number] ; , lasik ; . * Hospitalization/Major Diagno stic Procedure: D enies Past Hospitalization. * Family History: F ather: diagnosed with Diabetes mellitus without mention of complication, type II or unspecified type, not stated as uncontrolled, Unspecified essential hypertension, Unspecified heart disease. Paternal uncle: diagnosed with Diabetes mellitus without mention of complication, type II or unspecified type, not stated as uncontrolled. 2 brother(s) . 1 son(s) - healthy. . * Social History: M igSocialHx: M igSocialHx: Alcohol Use (ANS-No) ;Drug Use (ANS-No) ;Exposed to Second Hand Smoke (ANS-No) ;History of IV Drug Use (ANS-No) ;Lives In (ANS-Home) ;Lives With (ANS-Spouse) ;Smoking status (ANS-Never smoker) ;. * Medications: T aking Aleve 220 MG Tablet 1 tablet with food or milk as needed Orally every 12 hrs , Taking Vitamin D (Ergocalciferol) 1.25 MG (91163 UT) Capsule Take 1 capsule by mouth [...] Allergies: N .K.D.A. Objective: * Vitals: T emp:97.5F, HR:76/min, BP:132/82mm Hg, Wt:201lbs, BMI:33.44Index, Ht: 65 in, RR:16/min, Oxygen sat %:98%, Peak Flow: RA, Wt-k.17 kg. TM. Assessment: * Assessment: 1. H ypertension - I10 (Primary) 2 . H LD (hyperlipidemia) - E78.5 ? 3 . V itamin D deficiency - E55.9 4 . N on-seasonal allergic rhinitis, unspecified trigger - J30.89 5 . V ertigo - R42 6 . O ther obesity due to excess calories - E66.09 Plan: * Treatment: * Immunizations: Flucelvax : 0.5 mL (Route: Intramuscular) given by Dora Roland on Left Deltoid ???Immunization record has been reviewed and updated. * Procedure Codes: 9 0661 FLUCELVAX NO PRES 0.5ML IM * Preventive Medicine: Your Preventative Wellness Plan: I nfluenza Vaccine I nfluenza vaccine should be given once every flu season. STATUS: U p to date, D ate of last flu vaccine: . * * Electronic signature of Dominique Barrett MD on 08/16/2025 at 02:55 PM EST Sign off status: Pending * Provider: Rosita Barrett M.D. Date: Generated for Anibal grove/Dane/Miguel on: 10/16/2024 02:55 PM EST
--- NOTE | ~2025-08-16 | MM_ITS ---
EXAMINATION: MM screening brenna BI w nicolás HISTORY: Screening TECHNIQUE: Craniocaudal and mediolateral oblique 3-D tomosynthesis images were obtained and synthetic 2-D images were generated. CAD analysis was submitted and interpreted. COMPARISON: No prior mammogram is available for comparison at this institution. BREAST PARENCHYMAL COMPOSITION: Dense: The breasts are heterogeneously dense, which may obscure small masses FINDINGS: There is no evidence of suspicious mass, calcification, or architectural distortion to suggest malignancy in either breast. There has been no suspicious interval change. IMPRESSION: 1. No mammographic evidence of malignancy. 2. Recommend routine screening mammography in one year. BI-RADS Category 1: Negative Reviewed, dictated and finalized at location B. D COORDINATOR
--- OUTSIDE RECORDS SUMMARY | 2025-08-16 13:56 | XMS_ITS | Clinical Summary ---
Author Organization [facility] Address [address] [place] [address] Care Team Providers Care Dobby Looms Pegger Name Role Phone Castillo Barrett MD Primary Care Provider [phone] Allergies No known active allergies Medications cholecalciferol (VITAMIN D-3) 5,000 unit capsule Take 5,000 Units by mouth daily Active naproxen (ANAPROX,ALEVE) 220 mg tablet Take by mouth 2 (two) times a day with meals Active turmeric root extract 500 mg capsule Take by mouth Active Active Problems No known active problems Surgical History Surgery Date Site/Laterality Comments HYSTERECTOMY SECTION Medical History Medical History Date Comments Arthritis Family History Medical History Relation Name Comments Diabetes Father Gout Father Heart disease Father Hypertension Father Stroke Father Relation Name Status Comments Brother 1 Alive Brother 2 Alive Father Alive Mother Alive Social History Tobacco Use Types Packs/Day Years Used Date Smoking Tobacco: Never Alcohol Use Standard Drinks/Week Comments Never 0 (1 standard drink = 0.6 oz pur e alcohol) AUDIT-C Answer Date Recorded Frequency of Alcohol Consumption Never 01/27/2019 Average Number of Drinks Not on file 019 Frequency of Binge Drinking Not on file 01/04 PHQ-2 Answer Date Recorded PHQ-2 Score 0 05/27/2019 Personal Safety Answer Date Recorded Getting School Help Needed Not on file 12/19 Comments Unknown Sex and Gender Information Value Date Recorded Sex Assigned at Not on file Legal Sex Female 8:31 PM [employer] Gender Identity Not on file Sexual Orientation Not on file Last Filed Vital Signs Vital Sign Reading Time Taken Comments Blood Pressure 124/78 01/27/2019 1:14 PM CDT Pulse 69 01/27/2019 1:14 PM CDT Temperature 36.8 C (98.2 F) 01/27/2019 1:14 PM CDT Respiratory Rate 16 01/27/2019 1:14 PM CDT Oxygen Saturation 99% 01/27/2019 1:14 PM CDT Inhaled Oxygen Concentration - - Weight 89.4 kg (197 lb) 01/27/2019 1:14 PM CDT Height 165.1 cm (5' 5) 01/27/2019 1:14 PM CDT Body Mass Index 32.78 01/27/2019 1:14 PM CDT Plan of Treatment Health Maintenance Due Date Last Done Comments Breast Cancer Screening-Mammogram 1970 Colon Cancer Screening-Colonoscopy 1970 Hepatitis C Screening 1970 Hepatitis B Screening 1987 Depression Screening 01/28/2020 01/27/2019 Regular Well Visit/Exam 18-64 01/28/2020 01/27/2019 Zoster Vaccine (2 of 2) 08/17/2021 06/22/2021 Covid-19 Vaccine (4 - 2024-2 6 season) 2025 08/06/2021, 12/18/2020, 11/26/2020 Influenza Vaccine (#1) 2025 07/26/2019 DTaP/Tdap/Td Vaccine (3 - Td or Tdap) 06/22/2031 06/22/2021, 06/22/2021 Pneumococcal vaccine <65 Aged Out No longer eligible based on patient's age to complete this topic Insurance [address] [address] [address] [facility] H[facility]/PPO Address: [facility] [address] [place] [address] Care Teams Dobby Looms Pegger Relationship Specialty Start Date End Date Castillo Barrett MD PCP - General 06/20/19
--- OUTSIDE RECORDS SUMMARY | 2025-08-16 13:56 | XMS_ITS | Encounter Summary ---
Author Organization [facility] Address [address] [place] [address] Care Team Providers Care Health Type Technician Name Role Phone Unavailable Primary Care Provider Unavailabl e Prior Encounters Date Type Department Care Team Description 09/24/2022 Travel 09/24/2022 3:30 PM PATIENT ACCOUNT SPECIALIST Office Visit [facility] [address] [place] [address] Latoya Hathaway DDS 09/16/2022 3:00 PM PATIENT ACCOUNT SPECIALIST Office Visit [facility] [address] [place] [address] Latoya Hathaway DDS 10/18/2021 Travel 10/18/2021 10:00 AM PATIENT ACCOUNT SPECIALIST Office Visit [facility] [address] [place] [address] Wanda Castañeda DMD 04/12/2021 Travel 04/12/2021 8:00 AM CDT Office Visit [facility] [address] [place] [address] Wanda Castañeda, DMD Last Filed Vital Signs Vital Sign Reading Time Taken Comments Blood Pressure 124/66 09/24/2022 3:29 PM PATIENT ACCOUNT SPECIALIST Pulse 80 09/24/2022 3:29 PM PATIENT ACCOUNT SPECIALIST Temperature - - Respiratory Rate - - Oxygen Saturation - - Inhaled Oxygen Concentration - - Weight - - Height - - Body Mass Index - - Plan of Treatment Not on file Procedures Procedure Name Priority Date/Time Associated Diagnosis Comments 29 DO RESIN-BASED COMPOSITE - TWO SURFACES, POSTERIOR Routine 09/24/2022 3:30 PM PATIENT ACCOUNT SPECIALIST 30 DO RESIN-BASED COMPOSITE - TWO SURFACES, POSTERIOR Routine 09/24/2022 3:30 PM PATIENT ACCOUNT SPECIALIST INTRAORAL- PERIAPICAL RADIOGRAPHIC IMAGE- IMAGE CAPTURE ONLY Routine 09/16/2022 3:00 PM PATIENT ACCOUNT SPECIALIST INTRAORAL- PERIAPICAL RADIOGRAPHIC IMAGE- IMAGE CAPTURE ONLY Routine 09/16/2022 3:00 PM PATIENT ACCOUNT SPECIALIST PROPHYLAXIS - ADULT Routine 09/16/2022 3 :00 PM PATIENT ACCOUNT SPECIALIST TOPICAL APPLICATION OF FLUORIDE VARNISH Routine 09/16/2022 3:00 PM PATIENT ACCOUNT SPECIALIST BITEWINGS - FOUR RADIOGRAPHIC IMAGES Routine 09/16/2022 3:00 PM PATIENT ACCOUNT SPECIALIST PERIODIC ORAL EVALUATION - ESTABLISHED PATIENT Routine 09/16/2022 3:00 PM PATIENT ACCOUNT SPECIALIST 19 CEREC CROWN Routine 09/16/2022 12:00 AM PATIENT ACCOUNT SPECIALIST 19 ROOT CANAL Routine 09/16/2022 12:00 AM PATIENT ACCOUNT SPECIALIST 29 DO COMPOSITE FILLING Routine 09/16/20 22 12:00 AM PATIENT ACCOUNT SPECIALIST 30 DO COMPOSITE FILLING Routine 09/16/20 22 12:00 AM PATIENT ACCOUNT SPECIALIST TOPICAL APPLICATION OF FLUORIDE VARNISH Routine 10/18/2021 10:00 AM PATIENT ACCOUNT SPECIALIST PROPHYLAXIS - ADULT Routine 10/18/2021 1 0:00 AM PATIENT ACCOUNT SPECIALIST PERIODIC ORAL EVALUATION - ESTABLISHED PATIENT Routine 10/18/2021 10:00 AM PATIENT ACCOUNT SPECIALIST BITEWINGS - FOUR RADIOGRAPHIC IMAGES Routine 10/18/2021 10:00 AM PATIENT ACCOUNT SPECIALIST ORAL HYGIENE INSTRUCTIONS Routine 2020 8:00 AM CDT TOPICAL APPLICATION OF FLUORIDE VARNISH Routine 04/12/2021 8:00 AM CDT PROPHYLAXIS - ADULT Routine 04/12/2021 8 :00 AM CDT NEW PATIENT PHOTO INTRA ORAL Routine 04/12/2021 8:00 AM CDT NEW PATIENT PHOTO INTRA ORAL Routine 04/12/2021 8:00 AM CDT NEW PATIENT PHOTO INTRA ORAL Routine 04/12/2021 8:00 AM CDT NEW PATIENT PHOTO INTRA ORAL Routine 04/12/2021 8:00 AM CDT NEW PATIENT PANO Routine 04/12/2021 8:00 AM CDT NEW PATIENT SPECIAL EXAM - ADULT Routine 04/12/2021 8:00 AM CDT Visit Diagnoses Not on file
--- OUTSIDE RECORDS SUMMARY | 2025-08-16 13:56 | XMS_ITS | Clinical Summary ---
Author Organization [facility] Health Address [address] [place] [address] Care Team Providers Care Clean Energy Policy Analyst Name Role Phone Unavailable Primary Care Provider Unavailabl e Allergies No known active allergies Medications TURMERIC, BULK, MISC Take by mouth. Active cholecalciferol (VITAMIN D-3) 125 mcg (5,000 unit) capsule Take 5,000 Units by mouth 1 (one) time each day. Active turmeric root extract 500 mg capsule Take by mouth. Active naproxen sodium (ANAPROX) 220 mg tablet Take by mouth twice a day. Active Active Problems Problem Noted Date Diagnosed Date Primary osteoarthritis of left knee 01/13/2019 Social History Tobacco Use Types Packs/Day Years Used Date Smoking Tobacco: Never Assessed Comments No Sex and Gender Information Value Date Recorded Sex Assigned at Not on file Legal Sex Female 9:32 AM PDT Gender Identity Not on file Sexual Orientation Not on file Last Filed Vital Signs Vital Sign Reading Time Taken Comments Blood Pressure 124/66 09/24/2022 3:29 PM GEOGRAPHIC INFORMATION SYSTEMS DIRECTOR Pulse 80 09/24/2022 3:29 PM GEOGRAPHIC INFORMATION SYSTEMS DIRECTOR Temperature - - Respiratory Rate - - Oxygen Saturation - - Inhaled Oxygen Concentration - - Weight - - Height - - Body Mass Index - - Plan of Treatment Health Maintenance Due Date Last Done Comments Dental Oral Exam 03/18/2023 09/16/2022, 10/18/2021, 04/12/2021 Dental Prophylaxis 03/18/2023 09/16/2022, 10/18/2021 , 04/12/2021 Dental X-Ray: Bitewings 03/18/2023 09/16/2022 Dental X-Ray: Full Mouth 04/15/2024 04/14/2021, 06/2021 Dental X-Ray: Panoramic 04/15/2024 04/14/2021, 04/12 Procedures Procedure Name Priority Date/Time Associated Diagnosis Comments PROPHYLAXIS - ADULT Routine 09/16/2022 3:00 PM GEOGRAPHIC INFORMATION SYSTEMS DIRECTOR PERIODIC ORAL EVALUATION - ESTABLISHED PATIENT Routine 09/16/2022 3:00 PM GEOGRAPHIC INFORMATION SYSTEMS DIRECTOR NEW PATIENT PANO Routine 04/12/2021 8:00 AM CDT from Last 3 Months or Most Recently Relevant to Health Maintenance
--- OUTSIDE RECORDS SUMMARY | 2025-08-16 13:56 | XMS_ITS | Patient Health Record ---
Author Organization [facility] Address [address] [facility] [address] [place] [address] Care Team Providers Care Site Foreman Name Role Phone Castillo Barrett Primary Care Provider Allergies No Known Allergies Results Component Value Reference Range Notes LIPID PANEL (Not yet reviewe d by provider) Interpretation: Performing Lab:[facility] [employer] [facility]-[id number] [place], TctoxrVL[address] Ana Briones MD Notes/Report: CHOLESTEROL, TOTAL 196 <200 mg/dL HDL CHOLESTEROL 51 > OR = 50 mg/dL TRIGLYCERIDES 87 <150 mg/dL LDL-CHOLESTEROL 126 Reference range: <100 Desirable range <100 mg/dL for primary prevention; <70 mg/dL for patients with CHD or diabetic patients with > or = 2 CHD risk factors. LDL-C is now calculated using the Meek-Hernandez calculation, which is a validated novel method providing better accuracy than the Friedewald equation in the estimation of LDL-C. Meek CALZADA et al. ROMEO. 2013;310(19): 3835-5195 (http://education.Vioozer.MetaMaterials/faq/DPJ967) CHOL/HDLC RATIO 3.8 <5.0 (calc) NON HDL CHOLESTEROL 145 <130 mg/dL (calc) For patients with diabetes plus 1 major ASCVD risk factor, treating to a non-HDL-C goal of <100 mg/dL (LDL-C of <70 mg/dL) is considered a therapeutic option. COMPREHENSIVE METABOLIC PANE L (Not yet reviewed by provider) Interpretation: Performing Lab:[facility]-[id number] [place] [facility], LnjlwoBB[address] Ana Briones MD Notes/Report: GLUCOSE 92 65-99 mg/dL Fasting reference interval UREA NITROGEN (BUN) 14 7-25 mg/dL CREATININE 0.74 0.50-1.03 mg/dL EGFR 95 > OR = 60 mL/min/1.73m2 BUN/CREATININE RATIO SEE NOTE: 6-22 (calc) Not Reported: BUN and Creatinine are within reference range. SODIUM 137 135-146 mmol/L POTASSIUM 4.4 3.5-5.3 mmol/L CHLORIDE 103 98-110 mmol/L CARBON DIOXIDE 27 20-32 mmol/L CALCIUM 9.0 8.6-10.4 mg/dL PROTEIN, TOTAL 6.9 6.1-8.1 g/dL ALBUMIN 4.0 3.6-5.1 g/dL GLOBULIN 2.9 1.9-3.7 g/dL (calc) ALBUMIN/GLOBULIN RATIO 1.4 1.0-2.5 (calc) BILIRUBIN, TOTAL 0.3 0.2-1.2 mg/dL ALKALINE PHOSPHATASE 70 37-153 U/L AST 15 10-35 U/L ALT 14 6-29 U/L VITAMIN D,25-OH,TOTAL,IA (No t yet reviewed by provider) Interpretation: Performing Lab:[facility]-[id number] [place] [facility], NjkpooAO[address] Ana Briones MD Notes/Report: VITAMIN D,25-OH,TOTAL,IA 54 30-100 ng/mL Vitamin D Status 25-OH Vitamin D: Deficiency: <20 ng/mL Insufficiency: 20 - 29 ng/mL Optimal: > or = 30 ng/mL For 25-OH Vitamin D testing on patients on D2-supplementation and patients for whom quantitation of D2 and D3 fractions is required, the QuestAssureD(TM) 25-OH VIT D, (D2,D3), LC/MS/MS is recommended: order code 45944 (patients >2yrs). See Note 1 Note 1 For additional information, please refer to http://education.[employer]/faq/OYE067 (This link is being provided for informational/ educational purposes only.) COMPREHENSIVE METABOLIC PANE L (Not yet reviewed by provider) Interpretation: Performing Lab:[facility]-[id number] [place], CkrndcQH[address] Ana Briones MD Notes/Report: FASTING:YES FASTING: YES GLUCOSE 84 65-99 mg/dL Fasting reference interval UREA NITROGEN (BUN) 15 7-25 mg/dL CREATININE 0.71 0.50-1.03 mg/dL EGFR 100 > OR = 60 mL/min/1.73m2 BUN/CREATININE RATIO SEE NOTE: 03-26 (calc) Not Reported: BUN and Creatinine are within reference range. SODIUM 138 135-146 mmol/L POTASSIUM 4.7 3.5-5.3 mmol/L CHLORIDE 103 98-110 mmol/L CARBON DIOXIDE 28 20-32 mmol/L CALCIUM 9.4 8.6-10.4 mg/dL PROTEIN, TOTAL 7.3 6.1-8.1 g/dL ALBUMIN 4.1 3.6-5.1 g/dL GLOBULIN 3.2 1.9-3.7 g/dL (calc) ALBUMIN/GLOBULIN RATIO 1.3 1.0-2.5 (calc) BILIRUBIN, TOTAL 0.5 0.2-1.2 mg/dL ALKALINE PHOSPHATASE 83 37-153 U/L AST 13 10-35 U/L ALT 12 6-29 U/L COMPREHENSIVE METABOLIC PANE L (Not yet reviewed by provider) Interpretation: Performing Lab:[facility]-[id number] [place], NjwumeYC[address] Ana Briones MD Notes/Report: GLUCOSE 90 65-99 mg/dL Fasting reference interval UREA NITROGEN (BUN) 15 7-25 mg/dL CREATININE 0.88 0.50-1.03 mg/dL EGFR 78 > OR = 60 mL/min/1.73m2 BUN/CREATININE RATIO SEE NOTE: 03-26 (calc) Not Reported: BUN and Creatinine are within reference range. SODIUM 140 135-146 mmol/L POTASSIUM 4.9 3.5-5.3 mmol/L CHLORIDE 106 98-110 mmol/L CARBON DIOXIDE 28 20-32 mmol/L CALCIUM 9.3 8.6-10.4 mg/dL PROTEIN, TOTAL 7.3 6.1-8.1 g/dL ALBUMIN 4.2 3.6-5.1 g/dL GLOBULIN 3.1 1.9-3.7 g/dL (calc) ALBUMIN/GLOBULIN RATIO 1.4 1.0-2.5 (calc) BILIRUBIN, TOTAL 0.4 0.2-1.2 mg/dL ALKALINE PHOSPHATASE 75 37-153 U/L AST 11 10-35 U/L ALT 11 6-29 U/L LIPID PANEL (Not yet reviewe d by provider) Interpretation: Performing Lab:[facility]-Ifnlpn62813 [place], BwtsdsFL[address] Ana Briones MD Notes/Report: FASTING:YES FASTING: YES CHOLESTEROL, TOTAL 216 <200 mg/dL HDL CHOLESTEROL 60 > OR = 50 mg/dL TRIGLYCERIDES 93 <150 mg/dL LDL-CHOLESTEROL 137 Reference range: <100 Desirable range <100 mg/dL for primary prevention; <70 mg/dL for patients with CHD or diabetic patients with > or = 2 CHD risk factors. LDL-C is now calculated using the Zoey calculation, which is a validated novel method providing better accuracy than the Friedewald equation in the estimation of LDL-C. Meek CALZADA et al. ROMEO. 2013;310(19): 3763-7277 (http://education.TapZen/faq/UPB544) CHOL/HDLC RATIO 3.6 <5.0 (calc) NON HDL CHOLESTEROL 156 <130 mg/dL (calc) For patients with diabetes plus 1 major ASCVD risk factor, treating to a non-HDL-C goal of <100 mg/dL (LDL-C of <70 mg/dL) is considered a therapeutic option. COMPREHENSIVE METABOLIC PANE L (Not yet reviewed by provider) Interpretation: Performing Lab:[facility]-[id number] [place], FherktMR[address] Ana Briones MD Notes/Report: FASTING:YES FASTING: YES GLUCOSE 85 65-99 mg/dL Fasting reference interval UREA NITROGEN (BUN) 11 7-25 mg/dL CREATININE 0.79 0.50-1.03 mg/dL EGFR 88 > OR = 60 mL/min/1.73m2 BUN/CREATININE RATIO SEE NOTE: 6-22 (calc) Not Reported: BUN and Creatinine are within reference range. SODIUM 140 135-146 mmol/L POTASSIUM 5.1 3.5-5.3 mmol/L CHLORIDE 105 98-110 mmol/L CARBON DIOXIDE 27 20-32 mmol/L CALCIUM 9.7 8.6-10.4 mg/dL PROTEIN, TOTAL 7.3 6.1-8.1 g/dL ALBUMIN 4.2 3.6-5.1 g/dL GLOBULIN 3.1 1.9-3.7 g/dL (calc) ALBUMIN/GLOBULIN RATIO 1.4 1.0-2.5 (calc) BILIRUBIN, TOTAL 0.4 0.2-1.2 mg/dL ALKALINE PHOSPHATASE 80 37-153 U/L AST 13 10-35 U/L ALT 10 6-29 U/L CBC (INCLUDES DIFF/PLT) (Not yet reviewed by provider) Interpretation: Performing Lab:[facility]-[id number] [place] HendrixaKS[address] Ana Briones MD Notes/Report: FASTING:YES FASTING: YES WHITE BLOOD CELL COUNT 7.2 3.8-10.8 Thousand/ uL RED BLOOD CELL COUNT 4.28 3.80-5.10 Million/uL HEMOGLOBIN 11.6 11.7-15.5 g/dL HEMATOCRIT 36.3 35.0-45.0 % MCV 84.8 80.0-100.0 fL MCH 27.1 27.0-33.0 pg MCHC 32.0 32.0-36.0 g/dL For adults, a slight decrease in the calculated MCHC value (in the range of 30 to 32 g/dL) is most likely not clinically significant; however, it should be interpreted with caution in correlation with other red cell parameters and the patient's clinical condition. RDW 12.8 11.0-15.0 % PLATELET COUNT 382 140-400 Thousand/uL MPV 10.7 7.5-12.5 fL ABSOLUTE NEUTROPHILS 4277 2078-5924 cells/uL ABSOLUTE LYMPHOCYTES 2268 850-3900 cells/uL ABSOLUTE MONOCYTES 418 200-950 cells/uL ABSOLUTE EOSINOPHILS 187 15-500 cells/uL ABSOLUTE BASOPHILS 50 0-200 cells/uL NEUTROPHILS 59.4 LYMPHOCYTES 31.5 MONOCYTES 5.8 EOSINOPHILS 2.6 BASOPHILS 0.7 LIPID PANEL (Not yet reviewe d by provider) Interpretation: Performing Lab:[facility]-[id number] [place] HendrixaKS[address] Ana Briones MD Notes/Report: FASTING:YES FASTING: YES CHOLESTEROL, TOTAL 208 <200 mg/dL HDL CHOLESTEROL 61 > OR = 50 mg/dL TRIGLYCERIDES 79 <150 mg/dL LDL-CHOLESTEROL 129 Reference range: <100 Desirable range <100 mg/dL for primary prevention; <70 mg/dL for patients with CHD or diabetic patients with > or = 2 CHD risk factors. LDL-C is now calculated using the Meek-Hernandez calculation, which is a validated novel method providing better accuracy than the Friedewald equation in the estimation of LDL-C. Meek SS et al. ROMEO. 2013;310(19): 0206-6832 (http://education.TapZen/faq/SFC384) CHOL/HDLC RATIO 3.4 <5.0 (calc) NON HDL CHOLESTEROL 147 <130 mg/dL (calc) For patients with diabetes plus 1 major ASCVD risk factor, treating to a non-HDL-C goal of <100 mg/dL (LDL-C of <70 mg/dL) is considered a therapeutic option. COMPREHENSIVE METABOLIC PANE L (Not yet reviewed by provider) Interpretation: Performing Lab:[facility], [facility]-Puwgoz47744 [place] [facility], ThfvoyUY[address] Ana Briones MD Notes/Report: FASTING:YES FASTING: YES GLUCOSE 93 65-99 mg/dL Fasting reference interval UREA NITROGEN (BUN) 13 7-25 mg/dL CREATININE 0.77 0.50-1.03 mg/dL EGFR 90 > OR = 60 mL/min/1.73m2 BUN/CREATININE RATIO SEE NOTE: 6-22 (calc) Not Reported: BUN and Creatinine are within reference range. SODIUM 139 135-146 mmol/L POTASSIUM 5.1 3.5-5.3 mmol/L CHLORIDE 107 98-110 mmol/L CARBON DIOXIDE 29 20-32 mmol/L CALCIUM 9.7 8.6-10.4 mg/dL PROTEIN, TOTAL 7.4 6.1-8.1 g/dL ALBUMIN 4.2 3.6-5.1 g/dL GLOBULIN 3.2 1.9-3.7 g/dL (calc) ALBUMIN/GLOBULIN RATIO 1.3 1.0-2.5 (calc) BILIRUBIN, TOTAL 0.5 0.2-1.2 mg/dL ALKALINE PHOSPHATASE 78 37-153 U/L AST 15 10-35 U/L ALT 11 6-29 U/L CBC (INCLUDES DIFF/PLT) (Not yet reviewed by provider) Interpretation: Performing Lab:[facility], [facility]-Vnarbr27565 [place], MxgpxsMC[address] Ana Briones MD Notes/Report: FASTING:YES FASTING: YES WHITE BLOOD CELL COUNT 7.1 3.8-10.8 Thousand/ uL RED BLOOD CELL COUNT 4.24 3.80-5.10 Million/uL HEMOGLOBIN 11.2 11.7-15.5 g/dL HEMATOCRIT 35.1 35.0-45.0 % MCV 82.8 80.0-100.0 fL MCH 26.4 27.0-33.0 pg MCHC 31.9 32.0-36.0 g/dL For adults, a slight decrease in the calculated MCHC value (in the range of 30 to 32 g/dL) is most likely not clinically significant; however, it should be interpreted with caution in correlation with other red cell parameters and the patient's clinical condition. RDW 14.8 11.0-15.0 % PLATELET COUNT 349 140-400 Thousand/uL MPV 11.0 7.5-12.5 fL ABSOLUTE NEUTROPHILS 3976 6481-0692 cells/uL ABSOLUTE LYMPHOCYTES 2499 850-3900 cells/uL ABSOLUTE MONOCYTES 398 200-950 cells/uL ABSOLUTE EOSINOPHILS 156 15-500 cells/uL ABSOLUTE BASOPHILS 71 0-200 cells/uL NEUTROPHILS 56 LYMPHOCYTES 35.2 MONOCYTES 5.6 EOSINOPHILS 2.2 BASOPHILS 1.0 Reason For Referral No Information Medications Medication SIG (Take, Route, Frequency, Duration) Notes Start Date End Date Status Tessalon Perles 100 MG 1 capsule as need ed Orally Three times a day; Duration: 7 days 08/18/2018 Not-Taking Losartan Potassium 25 MG 1 tablet Orally Once a day; Duration: 90 days Active SENNA-S 8.6-50 MG 2TAB PO bid prn Not-Taking Doxycycline Hyclate 100 MG 1 capsule Ora lly Twice a day; Duration: 7 days 08/18/2018 Not-Taking Phentermine HCl 37.5 MG 1 capsule Orally Every other day; Duration: 30 days 04/05/2025 Not-Taking Vitamin D (Ergocalciferol) 1.25 MG (59577 UT) Take 1 capsule by mouth once a week; Duration: 84 Active Aleve 220 MG 1 tablet with food o r milk as needed Orally every 12 hrs Active Multivitamins 1TAB 1 tablet PO 1 per week 10/05/18 Not-Taking Multi For Her - 1 tab Orally Every day Not-Taking Immunizations Vaccine Route Administration Date Status Comme nts Flucelvax IM Intramuscular 07/26/2025 Administered Influenzal (split), seasonal, intermuscular,prese rvative free IM Intramuscular 07/26/2019 Administered Tetanus Diptheria IM Intramuscular 06/22/2021 Administered PATIENT HAD A TDAP @ [facility]#[id number] LOT#[id number] Zoster IM Intramuscular 06/22/2021 Administered NADIYA Harden HAD SHINGLES VACCINE LOT#[id number] [facility]#[id number] @ [facility] Social History Tobacco Use: Social History Observation [...] Problem Status W/U Status Risk Notes Problem Obesity due to excess calories (608518615) Other obesity due to excess calories (E66.09) Active confirmed Problem Chronic pain (13508413) Other chronic pain (G89.29) Active confirmed Problem Osteoarthritis of knee (977442217) Bilateral primary osteoarthritis of knee (M17.0) Active confirmed Problem Localized, primary osteoarthritis of the shoulder region (277040245) Primary osteoarthritis, right shoulder (M19.011) Active confirmed Problem Localized, primary osteoarthritis of the shoulder region (039040138) Primary osteoarthritis, left shoulder (M19.012) Active confirmed Problem Sciatica (23375613) Lumbago with sciatica, right side (M54.41) Active confirmed Problem Hypertension (64831437) Hypertension (I10) Active confirmed Problem Knee pain (5490148740) Knee pain (M25.569) Active confirmed Problem Vitamin D deficiency (96657173) Vitamin D deficiency (E55.9) Active confirmed Problem History of disorder of vision (941201863222997) Vision problem (H54.7) Active confirmed Problem Vertigo (551293343) Vertigo (R42) Active confirmed Problem Neck pain (38245041) Neck pain (M54.2) Active confirmed Problem Leg swelling symptom (228893498) Leg swelling (M79.89) Active confirmed Problem Fall () Fall (W19.XXXA) Active confirmed Problem Osteoarthritis of knee (137966922) Primary osteoarthritis of left knee (M17.12) Active confirmed Problem Anemia (368081910) Anemia, unspecified type (D64.9) Active confirmed Problem Osteoarthritis of knee (904515213) Primary osteoarthritis of right knee (M17.11) Active confirmed Problem Morbid obesity (974530756) Morbid obesity (E66.01) Active confirmed Problem Adverse effect due to correct medicinal substance, properly administered (T50.905A) Active confirmed Problem Liver function tests abnormal (094355757) Abnormal LFTs (liver function tests) (R79.89) Active confirmed Problem Hyperlipidaemia (54641955) HLD (hyperlipidemia) (E78.5) Active confirmed Problem Acute conjunctivitis (95362260) Acute conjunctivitis of right eye, unspecified acute conjunctivitis type (H10.31) Active confirmed Problem Allergic rhinitis (04742909) Non-seasonal allergic rhinitis, unspecified trigger (J30.89) Active confirmed Vital Signs Heart Rate 76 /min 07/26/2025 TM Temperature 97.5 degrees Fahrenheit 07/26/2025 TM Respiratory Rate 16 /min 07/26/2025 TM Blood pressure diastolic 82 mm Hg 07/26/2025 TM Oximetry 98 % 07/26/2025 TM Height 65 in 07/26/2025 TM Blood pressure systolic 132 mm Hg 07/26/2025 TM Weight 201 lbs 07/26/2025 TM BMI 33.44 kg/m2 07/26/2025 TM Encounters Encounter Location Date Provider Diagnosis [facility] [address] [address] 08/29/2024 Castillo Barrett Hypertension I10 ; H LD (hyperlipidemia) E78.5 ; Vitamin D deficiency E55.9 ; Non-seasonal allergic rhinitis, unspecified trigger J30.89 ; Cough R05.9 and Chest congestion R09.89 [facility] [address] [address] 09/14/2024 Castillo Barrett Hypertension I10 ; H LD (hyperlipidemia) E78.5 ; Vitamin D deficiency E55.9 ; Non-seasonal allergic rhinitis, unspecified trigger J30.89 ; Vertigo R42 and Obesity (BMI 30.0-34.9) E66.9 [facility] [address] [address] 10/06/2024 Castillo Barrett Hypertension I10 ; H LD (hyperlipidemia) E78.5 ; Vitamin D deficiency E55.9 and Morbid obesity E66.01 [facility] [address] [address] 11/17/2024 Castillo Barrett Hypertension I10 ; H LD (hyperlipidemia) E78.5 ; Morbid obesity E66.01 and Bilateral primary osteoarthritis of knee M17.0 [facility] [address] [address] 12/15/2024 Castillo Barrett Hypertension I10 ; H LD (hyperlipidemia) E78.5 ; Vitamin D deficiency E55.9 ; Non-seasonal allergic rhinitis, unspecified trigger J30.89 and Morbid obesity E66.01 [facility] [address] [address] 04/05/2025 Castillo Barrett Hypertension I10 ; H LD (hyperlipidemia) E78.5 ; Vitamin D deficiency E55.9 ; Non-seasonal allergic rhinitis, unspecified trigger J30.89 ; Vertigo R42 and Morbid obesity E66.01 [facility] [address] [address] 05/18/2025 Castillo Barrett Hypertension I10 ; H LD (hyperlipidemia) E78.5 ; Vitamin D deficiency E55.9 ; Morbid obesity E66.01 ; Vertigo R42 and Adverse effect due to correct medicinal substance, properly administered T50.905A [facility] [address] [address] 07/26/2025 Castillo Barrett Hypertension I10 ; H LD (hyperlipidemia) E78.5 ; Vitamin D deficiency E55.9 ; Non-seasonal allergic rhinitis, unspecified trigger J30.89 ; Vertigo R42 and Other obesity due to excess calories E66.09 [facility] [address] [address] 02/07/2025 Castillo Barrett Hypertension I10 and Vitamin D deficiency E55.9 [facility] [address] [address] 09/14/2024 Castillo Barrett [facility] [address] [address] 09/15/2024 Castillo Barrett [facility] [address] [address] 10/11/2024 Castillo Barrett Morbid obesity E66.0 1 [facility] [address] [address] 11/17/2024 Castillo Barrett Morbid obesity E66.0 1 [facility] [address] [address] 12/15/2024 Castillo Barrett Morbid obesity E66.0 1 [facility] [address] [address] 04/05/2025 Castillo Barrett Morbid obesity E66.0 1 [facility] [address] [address] 06/19/2025 Castillo Barrett Hypertension I10 [facility] [address] [address] 07/31/2025 Castillo Barrett Hypertension I10 Assessments Encounter Date Diagnosis (ICD Code) Assessment Notes Treatment Notes Treatment Clinical Notes Section Notes 08/29/2024 Hypertension (ICD-10 - I10) High Blood Pressure: Care Instructions material was published 08/29/2024 HLD (hyperlipidemia) (ICD-10 - E78.5) 09/14/2024 Hypertension (ICD-10 - I10) High Blood Pressure: Care Instructions material was published 10/06/2024 Hypertension (ICD-10 - I10) 10/06/2024 HLD (hyperlipidemia) (ICD-10 - E78.5) 10/11/2024 Morbid obesity (ICD-10 - E66.01) 11/17/2024 Hypertension (ICD-10 - I10) High Blood Pressure: Care Instructions material was published 11/17/2024 Morbid obesity (ICD-10 - E66.01) 12/15/2024 Hypertension (ICD-10 - I10) High Blood Pressure: Care Instructions material was published 04/05/2025 Hypertension (ICD-10 - I10) High Blood Pressure: Care Instructions material was published 12/15/2024 Morbid obesity (ICD-10 - E66.01) 02/07/2025 Hypertension (ICD-10 - I10) 04/05/2025 Morbid obesity (ICD-10 - E66.01) 05/18/2025 Hypertension (ICD-10 - I10) High Blood Pressure: Care Instructions material was published 05/18/2025 HLD (hyperlipidemia) (ICD-10 - E78.5) 06/19/2025 Hypertension (ICD-10 - I10) 07/26/2025 Hypertension (ICD-10 - I10) High Blood Pressure: Care Instructions material was published 07/31/2025 Hypertension (ICD-10 - I10) 07/26/2025 HLD (hyperlipidemia) (ICD-10 - E78.5) 05/18/2025 Vitamin D deficiency (ICD-10 - E55.9) 02/07/2025 Vitamin D deficiency (ICD-10 - E55.9) 04/05/2025 HLD (hyperlipidemia) (ICD-10 - E78.5) 11/17/2024 HLD (hyperlipidemia) (ICD-10 - E78.5) 12/15/2024 HLD (hyperlipidemia) (ICD-10 - E78.5) 10/06/2024 Vitamin D deficiency (ICD-10 - E55.9) 09/14/2024 HLD (hyperlipidemia) (ICD-10 - E78.5) 08/29/2024 Vitamin D deficiency (ICD-10 - E55.9) 08/29/2024 Non-seasonal allergic rhinitis, unspecified trigger (ICD-10 - J30.89) 10/06/2024 Morbid obesity (ICD-10 - E66.01) Starting a Weight-Loss Plan: Care Instructions material was published 09/14/2024 Vitamin D deficiency (ICD-10 - E55.9) 04/05/2025 Vitamin D deficiency (ICD-10 - E55.9) 12/15/2024 Vitamin D deficiency (ICD-10 - E55.9) 11/17/2024 Morbid obesity (ICD-10 - E66.01) 07/26/2025 Vitamin D deficiency (ICD-10 - E55.9) 05/18/2025 Morbid obesity (ICD-10 - E66.01) 07/26/2025 Non-seasonal allergic rhinitis, unspecified trigger (ICD-10 - J30.89) 04/05/2025 Non-seasonal allergic rhinitis, unspecified trigger (ICD-10 - J30.89) 05/18/2025 Vertigo (ICD-10 - R42) 11/17/2024 Bilateral primary osteoarthritis of knee (ICD-10 - M17.0) 12/15/2024 Non-seasonal allergic rhinitis, unspecified trigger (ICD-10 - J30.89) 09/14/2024 Non-seasonal allergic rhinitis, unspecified trigger (ICD-10 - J30.89) 08/29/2024 Cough (ICD-10 - R05.9) 08/29/2024 Chest congestion (ICD-10 - R09.89) 09/14/2024 Vertigo (ICD-10 - R42) 04/05/2025 Vertigo (ICD-10 - R42) 12/15/2024 Morbid obesity (ICD-10 - E66.01) 07/26/2025 Vertigo (ICD-10 - R42) 05/18/2025 Adverse effect due to correct medicinal substance, properly administered (ICD-10 - T50.905A) 07/26/2025 Other obesity due to excess calories (ICD-10 - E66.09) 04/05/2025 Morbid obesity (ICD-10 - E66.01) 09/14/2024 Obesity (BMI 30.0-34.9) (ICD-10 - E66.9) Plan Of Treatment Pending Test Test Name Order Date LIPID PANEL 10/23/2015 LIPID PANEL 09/04/2017 LIPID PANEL 07/04/2019 LIPID PANEL 06/26/2022 LIPID PANEL 02/19/2023 LIPID PANEL 11/26/2023 LIPID PANEL 06/14/2024 LIPID PANEL 09/12/2024 LIPID PANEL 05/12/2025 LIPID PANEL 08/14/2025 COMPREHENSIVE METABOLIC PANEL 08/14/2025 COMPREHENSIVE METABOLIC PANEL 05/12/2025 COMPREHENSIVE METABOLIC PANEL 08/18/2022 COMPREHENSIVE METABOLIC PANEL 09/12/2024 COMPREHENSIVE METABOLIC PANEL 10/03/2024 COMPREHENSIVE METABOLIC PANEL 11/09/2024 COMPREHENSIVE METABOLIC PANEL 06/14/2024 COMPREHENSIVE METABOLIC PANEL 11/26/2023 COMPREHENSIVE METABOLIC PANEL 02/19/2023 COMPREHENSIVE METABOLIC PANEL 06/26/2022 COMPREHENSIVE METABOLIC PANEL 07/04/2019 COMPREHENSIVE METABOLIC PANEL 04/15/2018 COMPREHENSIVE METABOLIC PANEL 10/23/2015 COMPREHENSIVE METABOLIC PANEL 09/04/2017 URIC ACID 09/04/2017 URIC ACID 04/15/2018 CBC (INCLUDES DIFF/PLT) 02/19/2023 CBC (INCLUDES DIFF/PLT) 11/26/2023 CBC (INCLUDES DIFF/PLT) 06/14/2024 CBC (INCLUDES DIFF/PLT) 05/12/2025 CBC (INCLUDES DIFF/PLT) 08/14/2025 CBC (INCLUDES DIFF/PLT) 10/23/2015 CBC (INCLUDES DIFF/PLT) 07/04/2019 CBC (INCLUDES DIFF/PLT) 06/26/2022 CBC (H/H, RBC, INDICES, WBC, PLT) 2017 URINALYSIS, COMPLETE W/REFLEX TO CULTURE 07/04/2019 URINALYSIS, COMPLETE W/REFLEX TO CULTURE 06/26/2022 URINALYSIS, COMPLETE W/REFLEX TO CULTURE 09/04/2017 SED RATE BY MODIFIED WESTERGREN 09/04/20 17 SED RATE BY MODIFIED WESTERGREN 04/15/20 18 RHEUMATOID FACTOR 09/04/2017 RHEUMATOID FACTOR 04/15/2018 FRANCIS IFA SCREEN W/REFL TO TITER AND PATTE RN, IFA 04/15/2018 FRANCIS IFA SCREEN W/REFL TO TITER AND PATTE RN, IFA 09/04/2017 HEMOGLOBIN A1c 06/26/2022 T4, FREE 09/04/2017 T4, FREE 07/04/2019 T4, FREE 06/26/2022 T3, TOTAL 07/04/2019 T3, TOTAL 09/04/2017 TSH 09/04/2017 TSH 10/23/2015 TSH 04/15/2018 TSH 06/26/2022 TSH 07/04/2019 TSH 11/26/2023 TSH 06/14/2024 T3, FREE 06/26/2022 VITAMIN D,25-OH,TOTAL,IA 04/15/2018 VITAMIN D,25-OH,TOTAL,IA 10/23/2015 VITAMIN D,25-OH,TOTAL,IA 09/12/2024 VITAMIN D,25-OH,TOTAL,IA 11/26/2023 REFLEXIVE URINE CULTURE 06/26/2022 Next Appt Details Provider Name:Castillo Castle priscilla, 08/17/2025 01:00:00 PM, [address] [facility] [address], [place], [address], Insurance Providers Payer Name Payer Address Payer Phone Subscriber Number Group Number Insured Name Patient Relationship to Insured Coverage Start Date Coverage End Date [facility] [address] [place] [address] [phone] [id number] PATRICIA EDDY Self - patient is the insured 5 Medical (General) History Medical History History ICD Code Anemia Constipation ,Note-righjt ovary Varicose veins of lower extremity Surgical History Surgery Date(Month/Year) Childbirth ; Hysterectomy [id number] ; lasik ;
--- OUTSIDE RECORDS SUMMARY | 2025-08-16 13:58 | XMS_ITS | Clinical Summary ---
Author Organization [facility] Address [address] [place] [id number] Care Team Providers Care Sound Effects Manager Name Role Phone Unavailable Primary Care Provider Unavailabl e Social History Tobacco Use Types Packs/Day Years Used Date Smoking Tobacco: Never Assessed Comments Unknown Sex and Gender Information Value Date Recorded Sex Assigned at Not on file Legal Sex Female 9:28 PM CDT Gender Identity Not on file Sexual Orientation Not on file Plan of Treatment Health Maintenance Due Date Last Done Comments DTAP/TDAP/TD VACCINES (1 - Tdap) 1988 HEPATITIS B VACCINES (1 of 3 - 19+ 3-dose series) 05/05 BREAST CANCER SCREENING 2009 COLORECTAL SCREENING 2014 Colorectal Cancer Screening 2014 FIT-DNA Q 3 years 2014 FIT/FOBT Q 1 year 2014 Flex Sig/CT Colonography Q 5 years 2014 ZOSTER VACCINE (1 of 2) 2019 INFLUENZA VACCINE (#1) 2025
== END 2025-08-16 12:51 | disposition home or self-care (01) ==
PROVIDERS: PCP Internal Medicine; Visit Provider Internal Medicine
DX: Z12.31 Encounter for screening mammogram for malignant neoplasm of breast (principal)
CPT/HCPCS: 77063; 77067